=== PATIENT | female | born 1965 | race Caucasian/White ===

== ENCOUNTER 2019-03-22 17:35 | Emergency (ER) | payer OTHER ==
[~2019-03-22] VITALS: Ht 160 cm; Wt 69.0 kg
[2019-03-22 17:41] VITALS: BP 99/54
[2019-03-22] MEDS ORDERED: KETOROLAC 60 MG/2 ML VIAL IM ONE (18:10)
--- NOTE | 2019-03-22 18:30 | NUR ---
BIB . AAO X4 C/O RIGHT HEEL RADIATING TO RIGHT ANKLE WORSENING TODAY X 2 DAYS. PT DENIES TRAUMA/ INJURY. PT TOOK TYLENOL EXTRA STRENGTH AT 9 AM WITH NO RELIEF. CMS PRESENT AT FOOT, NO SWELLING , REDNESS, WARMNESS NOTED THIS TI,E. PAIN 5/10. ER MD TO SEE THE PT. PMH: THYROID PROBLEM MED RX: AUGMENTIN (STOMACH INFECTION), POLYMIXIN FOR EAR INFECTION, ARMOUR THYROID ALLERGIES: DENIES
--- NOTE | 2019-03-22 18:41 | NUR ---
ORTHOPEDIC SHOE, SIZE WOMENS MEDIUM, PLACED ON PT R FOOT AND FASTENED. +CSM
--- NOTE | 2019-03-22 18:44 | NUR ---
PT GIVEN INSTRUCTION ON PROPER USE OF CRUTCHES. CRUTCHES FITTED TO PT HEIGHT AND ARM LENGTH. PT GIVEN INSTRUCTION ON USING CRUTCHES DURING SITTING/STANDING, AND WALKING. PT DEMONSTRATED SAFE USE FOR APPROXIMATELY 40 FEET, PT STATED SHE FELT COMFORTABLE WITH USE.
--- NOTE | 2019-03-22 18:45 | NUR ---
EMT AT THE BEDSIDE FOR APPLYING SPLINT AND CRUTCHES. GAVE MEDS TO PT ORDERED. WILL REASSESS PAIN AGAIN.
[2019-03-22 19:30] VITALS: BP 99/54
--- NOTE | 2019-03-22 19:30 | NUR ---
Patient discharged with v/s stable. Written and verbal after care instructions given and explained. Patient alert, oriented and verbalized understanding of instructions. Ambulatory with steady gait. All questions addressed prior to discharge. ID band removed. Patient advised to follow up with PMD. Rx of PREDNISONE, TRAMADOL given. Patient educated on indication of medication including possible reaction and side effects. Opportunity to ask questions provided and answered.
== END 2019-03-22 19:30 | disposition home or self-care (01) ==
LOC: MED 17:35
DX: M72.2 Plantar fascial fibromatosis (principal); K21.9 Gastro-esophageal reflux disease without esophagitis; F41.9 Anxiety disorder, unspecified; E07.9 Disorder of thyroid, unspecified
CPT/HCPCS: 73630; 73650; 96372; 99283; J1885; Q0092

== ENCOUNTER 2019-05-21 13:14 | Emergency (ER) | payer OTHER ==
[~2019-05-21] VITALS: Ht 162.6 cm; Wt 68.9 kg
[2019-05-21 13:25] VITALS: BP 102/70
[2019-05-21 14:28] LABS: BASOPHILS % (AUTO) 0.7 % (0.0-2.0); EOSINOPHILS # (AUTO) 0.1 K/uL (0-0.4); HEMATOCRIT 41.2 % (36-48); HEMOGLOBIN 13.9 g/dL (12.0-16.0); LYMPHOCYTES # (AUTO) 1.6 K/uL (2.5-16.5); LYMPHOCYTES % (AUTO) 33.9 % (20.5-51.1); MEAN CORPUSCULAR HEMOGLOBIN 31 pg (27-31); MEAN CORPUSCULAR HGB CONC 34 g/dL (33-37); MEAN CORPUSCULAR VOLUME 90.5 fL (80-94); MONOCYTES # (AUTO) 0.4 K/uL (0.8-1.0); NEUTROPHILS # (AUTO) 2.6 K/uL (1.8-7.7); NEUTROPHILS % (AUTO) 54.4 % (42.2-75.2); PLATELET COUNT (AUTO) 222 K/uL (140-450); RED BLOOD CELL COUNT(AUTO) 4.55 MIL/uL (4.20-5.40); WHITE BLOOD COUNT (AUTO) 4.7 K/uL (4.8-10.8)
[2019-05-21 14:49] LABS: ANION GAP 10.5 (8-16); CARBON DIOXIDE 29.5 mmol/L (21-32); CREATININE 0.7 mg/dL (0.6-1.3)
[2019-05-21] MEDS: ASPIRIN 325 MG TAB PO ONE (15:32)
[2019-05-21 17:36] VITALS: BP 112/59
== END 2019-05-21 17:36 | disposition home or self-care (01) ==
LOC: MED 13:14
DX: R07.89 Other chest pain (principal); R06.02 Shortness of breath; K21.9 Gastro-esophageal reflux disease without esophagitis; E03.9 Hypothyroidism, unspecified
CPT/HCPCS: 36415; 71046; 80048; 81002; 83880; 84484; 85025; 99284

== ENCOUNTER 2022-04-11 13:06 | Emergency (ER) | payer OTHER ==
[~2022-04-11] VITALS: Ht 162.6 cm; Wt 67.1 kg
[2022-04-11 13:19] VITALS: BP 110/37
--- NOTE | 2022-04-11 13:25 | NUR ---
C/O LEFT EAR/HEAD PAIN , NAUSEA , DIARRHEA X 4 DAYS. PMH: THYROID
--- NOTE | 2022-04-11 13:45 | NUR ---
Jennifer mathur in [facility] - 04/11/22 at 1447 by [email or web address] Patient being evaluated by SHAZIA DÍAZ at bedside.
--- NOTE | 2022-04-11 13:45 | NUR ---
Patient being evaluated by SHAZIA DÍAZ at triage room.
[2022-04-11] MEDS ORDERED: KETOROLAC 30 MG/ML VIAL ONE (13:48)
[2022-04-11] MEDS ORDERED: KETOROLAC 30 MG/ML VIAL IM ONE (13:50)
--- NOTE | 2022-04-11 14:47 | NUR ---
Patient being reevaluated by SHAZIA DÍAZ at TRIAGE ROOM.
[2022-04-11] MEDS ORDERED: IBUP-2213 PO (14:51)
[2022-04-11] MEDS ORDERED: ACET-8386 PO (14:51)
[2022-04-11 14:56] VITALS: BP 101/61
--- NOTE | 2022-04-11 14:56 | NUR ---
Patient discharged with v/s stable. Written and verbal after care instructions given and explained. Patient alert, oriented and verbalized understanding of instructions. Ambulatory with steady gait. All questions addressed prior to discharge. ID band removed. Patient advised to follow up with PMD. Rx of norco, Ibuprofen given. Patient educated on indication of medication including possible reaction and side effects. Opportunity to ask questions provided and answered.
== END 2022-04-11 14:56 | disposition home or self-care (01) ==
LOC: MED 13:06
DX: H92.02 Otalgia, left ear (principal); R51.9 Headache, unspecified; E03.9 Hypothyroidism, unspecified; K21.9 Gastro-esophageal reflux disease without esophagitis
CPT/HCPCS: 96372; 99283; J1885